=== PATIENT | female | born 1960 | race Two or more races ===

== ENCOUNTER → 2025-01-14 | Outpatient (CLI) | payer MEDICAID, SELFPAY ==
--- NOTE | 2025-01-14 09:50 | XR_ITS ---
EXAMINATION: Cervical spine, 5 views Technique: Cervical spine AP, AP odontoid, lateral, bilateral obliques, 5 views Exam date and time: January 14, 2025 0955 hours INDICATIONS: Neck pain 5 years. FINDINGS: Significant osteopenia. Adequate alignment cervical vertebral bodies. No cervical fracture. Intact odontoid. Moderate to advanced degenerative disc disease C5-C6 with moderate bilateral neural foraminal stenosis at this level IMPRESSION: Moderate to advanced degenerative disc disease C5-C6
== END | disposition home or self-care (01) ==
DX: M50.322 Other cervical disc degeneration at C5-C6 level (principal)
CPT/HCPCS: 72050